=== PATIENT | female | born 1990 | race Caucasian/White ===

== ENCOUNTER → 2023-06-20 10:31 | Outpatient (CLI) | payer OTHER, MEDICAID, SELFPAY ==
[2023-06-20 19:45] LABS: Add Manual Diff / Slide Review NO; Basophils Absolute Auto 100 /uL (0-100); Basophils Percent Auto 0.8 % (0-2); Eosinophils Absolute Auto 100 /uL (0-450); Eosinophils Percent Auto 0.9 % (2-4); Hematocrit 36.5 % (36-46); Hemoglobin 12.4 g/dL (12.0-16.0); Lymphocytes Absolute Auto 2100 /uL (1100-4500); Lymphocytes Percent Auto 27.6 % (25-40); Mean Corpuscular HGB Conc 34.1 % (30-36); Mean Corpuscular Hemoglobin 26.3 PG (26-34); Mean Corpuscular Volume 77.1 fL (80-100); Monocytes Absolute Auto 400 /uL (0-900); Monocytes Percent Auto 5.7 % (3-14); Neutrophils Absolute Auto 5000 /uL (1500-7000); Platelet Count 341 X10^3/uL (150-400); Red Blood Cell Count 4.73 X10^6/uL (4.0-5.2); Red Cell Distribution Width 13.4 % (11.6-14.8); White Blood Cell Count 7.6 X10^3/uL (4.5-11.0)
[2023-06-20 19:47] LABS: Hemoglobin A1C% w Est Avg Glu 4.9 % (4.0-6.0)
[2023-06-20 19:50] LABS: Alanine Aminotransferase 17 IU/L (<35); Albumin 4.2 g/dL (3.5-5.0); Albumin Globulin Ratio 1.1 (1.0-2.8); Alkaline Phosphatase 90 U/L (38-126); Aspartate Aminotransferase 21 IU/L (14-36); BUN Creatinine Ratio 15.3 (6-22); Bilirubin Total 0.1 mg/dL (0.2-1.3); Blood Urea Nitrogen 11 mg/dL (7-17); Calcium 9.1 mg/dL (8.4-10.2); Carbon Dioxide 25 mmol/L (22-32); Chloride 104 mmol/L (98-107); Cholesterol 180 mg/dL (140-199); Estimated Glomerular Filt Rate > 60 mL/min (>60); Globulin 3.8 g/dL (1.7-4.1); Glucose 90 mg/dL (70-100); HDL Cholesterol 58 mg/dL (40-60); HEMOLYSIS < 15 (0-50); LDL Cholesterol Calculated 102 mg/dL (<100); Potassium 4.5 mmol/L (3.4-5.1); Sodium 136 mmol/L (137-145); Triglycerides 101 mg/dL (35-150)
[2023-06-20 20:14] LABS: TSH w/ Reflex to FT4 2.26 uIU/mL (0.47-4.68)
== END ==
PROVIDERS: PCP Physician Assistant; Visit Provider Physician Assistant
DX: L10.0 Pemphigus vulgaris (principal); R63.5 Abnormal weight gain; Z13.220 Encounter for screening for lipoid disorders; Z13.6 Encounter for screening for cardiovascular disorders; Z92.241 Personal history of systemic steroid therapy
CPT/HCPCS: 80053; 80061; 83036; 84443; 85025

== ENCOUNTER → 2024-09-17 10:30 | Outpatient (CLI) | payer OTHER, MEDICAID, SELFPAY ==
[2024-09-17 18:50] LABS: Hematocrit 37.2 % (36-46); Hemoglobin 12.3 g/dL (12.0-16.0); Mean Corpuscular Hemoglobin 26.6 PG (26-34); Mean Corpuscular Volume 80.7 fL (80-100); Platelet Count 331 X10^3/uL (150-400); Red Blood Cell Count 4.61 X10^6/uL (4.0-5.2); Red Cell Distribution Width 13.6 % (11.6-14.8); White Blood Cell Count 7.7 X10^3/uL (4.5-11.0)
[2024-09-17 19:03] LABS: Alanine Aminotransferase 15 IU/L (<35); Albumin Globulin Ratio 1.1 (1.0-2.8); Alkaline Phosphatase 91 U/L (38-126); Aspartate Aminotransferase 21 IU/L (14-36); Bilirubin Total 0.5 mg/dL (0.2-1.3); Blood Urea Nitrogen 10 mg/dL (7-17); Calcium 9.1 mg/dL (8.4-10.2); Carbon Dioxide 24 mmol/L (22-32); Chloride 105 mmol/L (98-107); Cholesterol 194 mg/dL (140-199); Estimated Glomerular Filt Rate > 60 mL/min (>60); Globulin 3.6 g/dL (1.7-4.1); Glucose 92 mg/dL (70-100); HDL Cholesterol 70 mg/dL (40-60); HEMOLYSIS < 15 (0-50); LDL Cholesterol Calculated 110 mg/dL (<100); Potassium 4.3 mmol/L (3.4-5.1); Sodium 136 mmol/L (137-145); Total Protein 7.6 g/dL (6.3-8.2); Triglycerides 71 mg/dL (35-150)
[2024-09-17 19:23] LABS: Neutrophils Absolute Manual 5544 /uL (3000-5900); RBC Morphology Normal Morphology; Total Cells Counted 100
[2024-09-19 15:27] LABS: HIV 1 & 2 Ab/Ag 4th Gen Combo NEGATIVE (NEGATIVE); Hep C Virus Ab w/Reflex Quant NEGATIVE s/c (NEGATIVE)
== END ==
PROVIDERS: PCP Physician Assistant; Visit Provider Physician Assistant
DX: Z11.59 Encounter for screening for other viral diseases (principal); Z11.4 Encounter for screening for human immunodeficiency virus [HIV]; E78.00 Pure hypercholesterolemia, unspecified; Z79.899 Other long term (current) drug therapy; Z13.220 Encounter for screening for lipoid disorders; R63.5 Abnormal weight gain
CPT/HCPCS: 80053; 80061; 85025; 86803; 87389

== ENCOUNTER → 2024-12-27 11:46 | Outpatient (CLI) | payer OTHER, SELFPAY ==
[2024-12-27 18:10] LABS: Add Manual Diff / Slide Review NO; Basophils Absolute Auto 100 /uL (0-100); Basophils Percent Auto 0.8 % (0-2); Eosinophils Absolute Auto 100 /uL (0-450); Eosinophils Percent Auto 0.9 % (2-4); Hemoglobin 12.4 g/dL (12.0-16.0); Lymphocytes Absolute Auto 2100 /uL (1100-4500); Lymphocytes Percent Auto 24.7 % (25-40); Mean Corpuscular HGB Conc 33.4 % (30-36); Mean Corpuscular Hemoglobin 26.7 PG (26-34); Mean Corpuscular Volume 79.9 fL (80-100); Monocytes Absolute Auto 500 /uL (0-900); Monocytes Percent Auto 5.6 % (3-14); Neutrophils Absolute Auto 5900 /uL (1500-7000); Platelet Count 356 X10^3/uL (150-400); Red Blood Cell Count 4.63 X10^6/uL (4.0-5.2); Red Cell Distribution Width 13.7 % (11.6-14.8); White Blood Cell Count 8.7 X10^3/uL (4.5-11.0)
[2024-12-27 18:17] LABS: Alanine Aminotransferase 16 IU/L (<35); Albumin 4.1 g/dL (3.5-5.0); Albumin Globulin Ratio 1.1 (1.0-2.8); Alkaline Phosphatase 87 U/L (38-126); Aspartate Aminotransferase 20 IU/L (14-36); BUN Creatinine Ratio 11.3 (6-22); Bilirubin Total 0.3 mg/dL (0.2-1.3); Blood Urea Nitrogen 8 mg/dL (7-17); Calcium 9.1 mg/dL (8.4-10.2); Carbon Dioxide 25 mmol/L (22-32); Chloride 104 mmol/L (98-107); Cholesterol 198 mg/dL (140-199); Estimated Glomerular Filt Rate > 60 mL/min (>60); Globulin 3.6 g/dL (1.7-4.1); Glucose 85 mg/dL (70-100); HDL Cholesterol 51 mg/dL (40-60); HEMOLYSIS < 15 (0-50); LDL Cholesterol Calculated 128 mg/dL (<100); Potassium 4.3 mmol/L (3.4-5.1); Sodium 138 mmol/L (137-145); Total Protein 7.7 g/dL (6.3-8.2); Triglycerides 94 mg/dL (35-150)
[2024-12-27 18:47] LABS: TSH w/ Reflex to FT4 2.69 uIU/mL (0.47-4.68)
== END ==
PROVIDERS: PCP Physician Assistant; Visit Provider Physician Assistant
DX: E78.00 Pure hypercholesterolemia, unspecified (principal); Z79.899 Other long term (current) drug therapy; Z68.35 Body mass index [BMI] 35.0-35.9, adult
CPT/HCPCS: 80053; 80061; 84443; 85025

== ENCOUNTER → 2025-06-03 13:04 | Outpatient (CLI) | payer OTHER, SELFPAY ==
[2025-06-03 19:25] LABS: Add Manual Diff / Slide Review NO; Hematocrit 35.7 % (36-46); Hemoglobin 12.0 g/dL (12.0-16.0); Lymphocytes Absolute Auto 2000 /uL (1100-4500); Mean Corpuscular HGB Conc 33.7 % (30-36); Mean Corpuscular Hemoglobin 27.8 PG (26-34); Mean Corpuscular Volume 82.3 fL (80-100); Platelet Count 317 X10^3/uL (150-400)
[2025-06-03 19:54] LABS: Vitamin D 25 Hydroxy (D3) 19.7 ng/mL (30.0-100.0)
[2025-06-03 20:12] LABS: Ferritin 30 ng/mL (6-137)
[2025-06-03 20:30] LABS: Vitamin B12 543 pg/mL (239-931)
== END ==
PROVIDERS: PCP Family Medicine; Visit Provider Family Medicine
DX: F33.9 Major depressive disorder, recurrent, unspecified (principal); F41.1 Generalized anxiety disorder; Z92.241 Personal history of systemic steroid therapy; Z79.899 Other long term (current) drug therapy; E78.00 Pure hypercholesterolemia, unspecified; E66.812 Obesity, class 2; Z68.37 Body mass index [BMI] 37.0-37.9, adult; E66.1 Drug-induced obesity
CPT/HCPCS: 82306; 82607; 82728; 83721; 85025

== ENCOUNTER → 2025-10-07 09:14 | Outpatient (CLI) | payer OTHER, SELFPAY ==
[2025-10-07 18:54] LABS: Hematocrit 34.7 % (36-46); Hemoglobin 11.8 g/dL (12.0-16.0); Mean Corpuscular HGB Conc 34.1 % (30-36); Mean Corpuscular Hemoglobin 27.8 PG (26-34); Mean Corpuscular Volume 81.3 fL (80-100); Platelet Count 280 X10^3/uL (150-400)
[2025-10-07 19:24] LABS: Alanine Aminotransferase 10 IU/L (<35); Albumin 4.0 g/dL (3.5-5.0); Albumin Globulin Ratio 1.3 (1.0-2.8); Alkaline Phosphatase 58 U/L (38-126); Blood Urea Nitrogen 8 mg/dL (7-17); Calcium 8.8 mg/dL (8.4-10.2); Carbon Dioxide 22 mmol/L (22-32); Chloride 107 mmol/L (98-107); Cholesterol 141 mg/dL (140-199); Estimated Glomerular Filt Rate > 60 mL/min (>60); Globulin 3.2 g/dL (1.7-4.1); Glucose 88 mg/dL (70-99); HDL Cholesterol 51 mg/dL (40-60); HEMOLYSIS < 15 (0-50); Potassium 3.9 mmol/L (3.4-5.1); Sodium 138 mmol/L (137-145); Total Protein 7.2 g/dL (6.3-8.2); Triglycerides 58 mg/dL (35-150)
[2025-10-07 19:39] LABS: Vitamin D 25 Hydroxy (D3) 23.5 ng/mL (30.0-100.0)
[2025-10-07 19:58] LABS: Ferritin 31 ng/mL (6-137)
== END ==
PROVIDERS: PCP Family Medicine; Visit Provider Family Medicine
DX: D50.9 Iron deficiency anemia, unspecified (principal); R79.0 Abnormal level of blood mineral; R79.89 Other specified abnormal findings of blood chemistry; E66.9 Obesity, unspecified; Z79.899 Other long term (current) drug therapy
CPT/HCPCS: 80053; 80061; 82306; 82728; 85027

== ENCOUNTER → 2025-10-16 13:32 | Outpatient (CLI) | payer OTHER, SELFPAY ==
[2025-10-16 19:08] LABS: Hematocrit 35.5 % (36-46); Hemoglobin 12.3 g/dL (12.0-16.0)
[2025-10-16 19:17] LABS: HEMOLYSIS < 15 (0-50); Iron 75 ug/dL (37-170)
[2025-10-16 19:28] LABS: Percent Iron Saturation 25 % (15-50); Total Iron Binding Capacity 305 ug/dL (265-497); Transferrin 254 mg/dL (206-381)
[2025-10-16 19:48] LABS: Thyroid Stimulating Hormone 2.11 uIU/mL (0.47-4.68)
[2025-10-16 19:54] LABS: Ferritin 37 ng/mL (6-137)
[2025-10-16 20:23] LABS: Folate 18.1 ng/mL (2.76-20.0); Vitamin B12 657 pg/mL (239-931)
== END ==
PROVIDERS: PCP Family Medicine; Visit Provider Family Medicine
DX: R53.83 Other fatigue (principal); M25.559 Pain in unspecified hip; M54.50 Low back pain, unspecified; M54.2 Cervicalgia; M25.571 Pain in right ankle and joints of right foot; M25.572 Pain in left ankle and joints of left foot; M25.50 Pain in unspecified joint
CPT/HCPCS: 82607; 82728; 82746; 83540; 83550; 84443; 85014; 85018; 85651; 86038; 86140; 86200; 86430